=== PATIENT | male | born 1970 | race Caucasian/White ===

== ENCOUNTER → 2019-02-23 | Outpatient (CLI) | payer OTHER | LOC: MRI 13:57 | DX: M41.84 Other forms of scoliosis, thoracic region (principal); M25.78 Osteophyte, vertebrae; M50.223 Other cervical disc displacement at C6-C7 level; M48.02 Spinal stenosis, cervical region; M51.24 Other intervertebral disc displacement, thoracic region; M51.34 Other intervertebral disc degeneration, thoracic region; M48.04 Spinal stenosis, thoracic region ==

== ENCOUNTER 2019-03-02 04:42 | Emergency (ER) | payer OTHER ==
[~2019-03-02] VITALS: Ht 172.7 cm; Wt 122.5 kg
[2019-03-02] MEDS ORDERED: MELOXICAM7.5 MG PO (04:52)
[2019-03-02] MEDS ORDERED: DULOXETINE HCL30 MG PO (04:52)
[2019-03-02 06:09] VITALS: BP 127/81
== END 2019-03-02 06:00 | disposition home or self-care (01) ==
LOC: ER 04:42
DX: J10.1 Influenza due to other identified influenza virus with other respiratory manifestations (principal); Z98.52 Vasectomy status; Z88.0 Allergy status to penicillin

== ENCOUNTER → 2019-04-03 | Outpatient (CLI) | payer OTHER ==
[~2019-04-03] VITALS: Ht 172.7 cm; Wt 125.2 kg
[~2019-04-03] MED LIST: DULOXETINE HCL30 MG PO; MELOXICAM7.5 MG PO
--- NOTE | ~2019-04-03 | HPC ---
[facility] [address] [place] [address] PAIN MANAGEMENT CONSULTATION Name: RADHA BOYD Room #: REG [facility].#: [id number] Admission: 04/03/19 Attend Phys: Davie Adler MD Discharge: Date of : 70 Report #: [id number] THIS REPORT FOR: cc: Bird Brown MD, Neal A. MD Morgan,Davie Hodges MD ~ THIS REPORT FOR: //name// CC: Bird Adler DATE OF SERVICE: 04/03/2019 CHIEF COMPLAINT: Left knee pain, chronic. I am seeing the patient today at the request of Dr. Bird Brown for chronic pain. He is a morbidly obese 49-year-old gentleman who has been out of work since May. 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 With increasing knee pain, he has been unable to perform his job. He describes the pain as severe and intense affecting his gait. He has a second pain along his left side that radiates along his rib cage. This occurred with some lifting activities. He reports that he saw a chiropractor who popped it back into place and that his chest wall pain has been improved. It is a far second to the pain that he experiences in his knee with weightbearing. He has an MRI that shows degenerative disk in the mid thoracic spine; however, there is no impingement for my review of the cord within the canal. No flattening in the neural foramina. It did not seem to be markedly compromised either. I doubt that his chest wall pain is radicular. We spent the majority of time discussing his knee which limits his activity greatly. Dr. lOivas and Dr. Marshall had suggested knee replacement. He complains that the insurance company said that he was not a candidate would not pay for the knee replacement. He also saw Dr. Samuel Emery who felt that he was perhaps not ready for replacement based upon his assessment. He has had multiple treatments for his knee including medication, nonsteroidal anti-inflammatory drugs, topical creams, physical therapy, injections of cortisone and synthetics, none of them providing lasting relief or improvement in function. CURRENT MEDICINES: Cymbalta 30 mg daily started in March of 2017 for depression, which is improved and meloxicam 7.5 [place] [address] PAIN MANAGEMENT CONSULTATION Name: RADHA BOYD Room #: REG [facility]#: [id number] Admission: 04/03/19 Attend Phys: Davie Adler MD Discharge: Date of : 70 Report #: [id number] ALLERGIES: PENICILLIN. PAST MEDICAL HISTORY: Positive for hypertension. He has had a surgery for deviated septum, appendectomy and a knee debridement. He did not report it, but on exam there was noted a scar in his neck and he has had a posterior laminectomy in the area of the C6-C7. Dr. Gomez performed the surgery. SOCIAL HISTORY: Has been off of work since May when he told me I assumed 05/2018, but his report as I dictate this 2017, so it may have been off for over 20 months. Denies use of tobacco, denies use of alcohol. He lives with his . He has 2 children grown and 2 grandchildren. Impact pain score is quite high at 49/70 suggesting interference of most of his activities of daily living and interference with sleep, mood and enjoyment of life at a high level. REVIEW OF SYSTEMS: Weight gain noted. He now weighs 276 with a BMI of 42. He has blurred vision. Denies chest pain, shortness of breath. Gastrointestinal or genitourinary problems. He self-reports memory loss, confusion, depression, and insomnia, which he relates all to pain. PHYSICAL EXAMINATION: GENERAL: He is a pleasant gentleman who seems to be mildly depressed. VITAL SIGNS: His blood pressure is 140/86, heart rate 78, respirations 16, O2 sat 99 on room air. He is 5 feet 8 inches, 276 pounds with a BMI of 42. HEENT: Reveals pupils to be equal, round, reactive to light. EOMs are intact. Mucous membranes are moist. NECK: Supple. LUNGS: Examination of the chest reveals some tenderness around the left chest wall. It does not follow a dermatomal pattern. MUSCULOSKELETAL: Examination of the lumbar spine reveals slight tenderness. Limited range of motion. EXTREMITIES: Examination of the extremities reveals symmetrical upper and lower extremities. He complained of atrophy, but there is none evident. He has good muscle mass noted in quadriceps and hamstrings. Straight leg raising is negative bilaterally. Sensation is normal bilaterally in the upper and lower extremities with no loss of sensation noted. Strength is also judged to be normal and adequate throughout. His gait is markedly antalgic. He has a rather dramatic limp. Examination of the left knee reveals good range of motion, no instability with lateral medial testing. Drawer test is negative. No crepitus present with movement. He has good range of motion. IMPRESSION: 1. Chronic pain syndrome. This has affected his activity and has kept him from work. Pain generators are primarily left knee and he does have some recent [facility] [address] [place] [address] PAIN MANAGEMENT CONSULTATION Name: RADHA BOYD Room #: REG [facility] Bhavya.#: [id number] Admission: 04/03/19 Attend Phys: Davie Adler MD Discharge: Date of : 70 Report #: [id number] onset chest wall pain which seems to be resolving. 2. Morbid obesity. This is certainly affecting his gait. 3. Hypertension. RECOMMENDATIONS: I have recommended continued physical therapy. Walking on a daily basis is critical. He will hurt himself by walking and if increased breakdown of cartilage occurs and the knee looks worse, he may then be a candidate for knee replacement at some time in the future. He has been on stronger pain medication, but wants to avoid them at this time. I would agree with that unless he is taking them for functional goals such as remaining at work. No additional recommendations. By: 1123 Davie Adler MD /nt
[2019-04-03 09:30] VITALS: BP 140/86
--- NOTE | 2019-04-03 09:33 | NUR ---
Pain Clinic Assessment: 1. History of Osteoarthritis: Not Applicable History of Rheumatoid Arthritis: Not Applicable 2. Height: 5 ft. 8 in. 172.7 cm. Weight: 276.0 lb. oz. 125.193 kg. Patient's BMI: 42.0 3. Vital Signs: BP: 140/86 Pulse: 78 Resp: 16 Temp: 02 Sat: 99 ECG Mon: 4. Pain Intensity: 5 5. Fall Risk: Dizziness: N Needs help standing or walking: Y Fallen in the last 3 months: N Fall risk comments: 6. Patient on Blood Thinner: None 7. History of Hypertension: Y 8. Opioid Therapy greater than 6 weeks: N Opiate Contract Signed: 9. Risk Assessment Tool Provided: 10. Functional Assessment Tool: 49 11. Recreational Drug Use: Never Drug Type: Tobacco Use: Never Smoker Tobacco Type: Amount or Packs/day: How Many Years: Alcohol Use: Past use Frequency: Weekly Quant: WON'T DRINK/N&V
== END ==
LOC: PAIN 06:52
DX: G89.4 Chronic pain syndrome (principal); M25.562 Pain in left knee; E66.01 Morbid (severe) obesity due to excess calories; I10 Essential (primary) hypertension; Z88.0 Allergy status to penicillin

== ENCOUNTER 2019-07-17 06:11 | Day surgery (SDC) | payer OTHER ==
[2019-07-10 09:31] LABS: HEMATOCRIT 44.1 % (42.0-52.0); HEMOGLOBIN 14.6 gm/dL (14.0-18.0); MCHC 33.1 g/dL (28.0-37.0); MCV 87.5 fL (80.0-100.0); RBC 5.04 mil/uL (4.50-6.00); WBC 5.7 thou/uL (4.0-11.0)
[2019-07-10 09:41] LABS: ALBUMIN 3.8 g/dL (3.4-5.0); CALCIUM 8.9 mg/dL (8.5-10.1)
[2019-07-10 09:43] LABS: URINE BILIRUBIN NEGATIVE (Negative); URINE BLOOD NEGATIVE (Negative); URINE CLARITY CLEAR; URINE COLOR YELLOW; URINE GLUCOSE-RANDOM* NEGATIVE (Negative); URINE KETONES NEGATIVE (Negative); URINE LEUKOCYTES-REFLEX NEGATIVE (Negative); URINE NITRITE-REFLEX NEGATIVE (Negative); URINE PROTEIN (DIPSTICK) NEGATIVE (Negative); URINE UROBILINOGEN 0.2 E.U./dl (0.2-1.0)
[~2019-07-17] VITALS: Ht 172.7 cm; Wt 123.8 kg
--- NOTE | ~2019-07-17 | O ---
[facility] [place] [address] OPERATIVE REPORT Name: RADHA BOYD Room #: 150-1 [facility]..#: [id number] Admission: 07/17/19 Attend Phys: Renny Lemus MD Discharge: Date of : 70 Report #: [id number] THIS REPORT FOR: cc: Bird Brown MD, Neal A. MD Abraham,Renny Clemente MD ~ CC: Bird Lemus DATE OF SERVICE: 07/17/2019 PREOPERATIVE DIAGNOSIS: Left knee osteoarthritis. POSTOPERATIVE DIAGNOSIS: Left knee osteoarthritis. PROCEDURE: Left total knee arthroplasty using Navio robotic assistance. SURGEON: Renny Lemus M.D. HOSPITAL NURSING ASSISTANT: Akiko Killian PA-C. INDICATIONS FOR HOSPITAL NURSING ASSISTANT: Throughout the case, extensive retraction and manipulation of the knee was required. This was afforded to me by my drafter assistant. ANESTHESIA: LMA with an adductor canal block. IMPLANTS: Ahn and Nephew size 8 Journey II BCS Oxinium femur, size 6 tibia, size 11 constrained polyethylene and size 35 patella. TOURNIQUET TIME: 64 minutes. ESTIMATED BLOOD LOSS: 25 mL. COMPLICATIONS: None. SPECIMENS: None. CONDITION UPON LEAVING THE OPERATING ROOM: Stable. INDICATIONS FOR PROCEDURE: The patient is a 49-year-old gentleman who has left knee osteoarthritis. He had failed conservative measures for this including PT arthroscopy, injections and NSAIDs. After discussion with him, he elected for left total knee arthroplasty. DESCRIPTION OF PROCEDURE: Risks, benefits, alternatives, complications were discussed in detail with the patient including but not limited to risk of [facility] [address] [place] [address] OPERATIVE REPORT Name: RADHA BOYD Room #: 150-1 [facility]#: [id number] Admission: 07/17/19 Attend Phys: Renny Lemus MD Discharge: Date of : 70 Report #: [id number] anesthesia, risk of damage to nerves, arteries, blood vessels, risk for infection, bleeding, risk for continued knee pain, need for reoperation. Informed consent was obtained from the patient. Left knee was appropriately marked in the preoperative holding area. IV Ancef was given for preoperative antibiotics. He was brought to the operating room and placed in supine position on operating room table. LMA anesthesia was induced without complication. Tourniquet was placed on the left thigh. Left lower extremity was prepped and draped in normal sterile fashion. Timeout was performed properly identifying the patient and procedure as well as the instrumentation and implants. All in the operating room were in agreement. Left lower extremity was exsanguinated, tourniquet was inflated. Tourniquet time was 64 minutes. Standard midline approach to knee was made with 10 blade through the skin. Dissection was taken down sharply to the fascia and deep flaps and developed medially and laterally. Fresh 10 blade was used to make a medial parapatellar arthrotomy and the knee was inspected. There was moderate to severe osteoarthritis both on the medial and lateral femoral condyles with complete loss of articular cartilage. ACL and PCL were removed sharply. Reference pins were placed in the femur and the tibia. The knee was then digitally mapped using the Zeuss robotic system. Intraoperative plan was made and we sized the size 8 femur with a size 6 tibia and a size 10 spacer. After acceptance of the intraoperative plan, the distal femoral cut was made with a Navio bur. The distal femoral cutting block was pinned in place and chamfer cuts were made. Attention was then turned to the tibia. Remainder of the menisci removed with Bovie cautery. Tibial resection guide was pinned in place and tibial resection was made. Flexion and extension gaps were then checked and found to have good balance in flexion and extension both medially and laterally. Tibia was sized, found to be a size 6. A size 6 tibial trial was placed, pinned and punched. A size 8 femoral trial was placed and box cut was made. This was then trialed with a size 11 polyethylene. Knee was taken through range of motion, found to have good balance medially and laterally throughout range of motion except for deep flexion, which there was some laxity laterally. It was felt we could make up for this with a constrained implant, 9 mm was resected from the posterior surface of the patella and a size 35 patellar trial button was placed. Knee was taken through range of motion, found to be stable, found to have good patellar tracking. Trial components were removed. Bony ends were thoroughly irrigated with normal saline. A final size 6 tibia, size 8 Journey II BCS Oxinium femur and a size 35 patella were cemented in place using standard cementation techniques. While the cement cured, a periarticular injection consisting of morphine, ropivacaine, epinephrine, Toradol was placed around the knee joint capsule. After the cement cured, tourniquet was deflated. Hemostasis was obtained with Bovie cautery. A final size 11 constrained polyethylene was placed. A gram of vancomycin was placed deep in the joint. Fascia was closed with 0 Vicryl, skin was closed with 2-0 Vicryl, skin staple and a SULY dressing was applied. The patient tolerated this [facility] [address] [place] [address] OPERATIVE REPORT Name: RADHA BOYD Room #: 150-1 [facility] M.R.#: [id number] Admission: 07/17/19 Attend Phys: Renny Lemus MD Discharge: Date of : 70 Report #: [id number] procedure well and went to recovery room under care of anesthesia postoperatively. By: [id number] Renny Lemus MD /nt
[~2019-07-17 06:11] MED LIST changes: +CO-ENZYME Q-1010 MG PO; +COQ-10100 MG PO; +FISH OIL 1,001000 M2 PO; +FOLIC ACID0.8 M1 PO; +GLUCOSAMINE &1 EAC1 PO; +MAGNESIUM250 M1 PO; +TYLENOL325 M1 PO; +VITAMIN B-121000 MC2 SUBLING; +VITAMIN C500 M1 PO; +VITAMIN D350 MC1 PO; +[UNRECOGNIZED DRUG - OTHER] PO
[2019-07-17 07:31] VITALS: BP 131/77
[2019-07-17 11:20] VITALS: BP 133/89
[2019-07-17 15:10] VITALS: BP 160/88
--- NOTE | 2019-07-17 15:16 | NUR ---
49 YO MALE ADMITTED FROM PACU TO 437. A&OX4. SULY DRSG IS SECURED WITH POLAR PACK AND VALENTÍN BANDAGE. PT IS AMBULATING WITH WITH STANDBY ASSIST AND WALKER. HAS VOIDED. STATES PAIN AT 2/10, TOLERATING PO HYDROCODONE WELL. CALL LIGHT W/I REACH.
--- NOTE | 2019-07-17 16:12 | NUR ---
PT ADMITTED RELATED TO LT TOTAL KNEE REPLACEMENT. CM REVIEWED CHART AND SPOKE WITH CARE TEAM. CM CALLED AND SPOKE WITH PT AT BEDSIDE THIS DAY. PT APPEARED TO BE A&O X4. CM ROLE INTRODUCED. PT INDICATED HE LIVES IN A HOUSE WITH HIS SPOUSE WITH 12 STEPS TO ENTER AND 8 STEPS TO BEDROOM. PT INIDCATED HE HAD BEEN ISING A CANE TO ASSIST WIH MOBILITY BUT HAD A FWW FOR USE UPON DC. PT INDICATED HE HAS AN OUTPATIENT PT APPOINTMENT TOMORROW AT 12:00 AT [facility] ON . PT AND PT MONTY INDICATED THAT PT HAD FOOT DROP AND THAT PT COULDN'T FEEL LEG OF SESSION THIS AFTERNOON. PT AND CARE TEAM INDICATING PT WOULD BENEFIT FROM DC WEDNESDAY HE HAS MANY STEPS TO NAVIGATE TO ENTER HOME. 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 IT IS ANTIPCATED THAT PT WILL DC HOME WEDNESDAY WITH HIS OWN DME AND OP PT. CM TO FOLLOW INDICATED WITH DC PLANNING. CM NOTIIED UR NURSE WELL.
[2019-07-17 20:05] VITALS: BP 116/77
[2019-07-18 00:32] VITALS: BP 115/72
[2019-07-18 04:05] VITALS: BP 108/80
--- NOTE | 2019-07-18 05:14 | NUR ---
ASSESSED AT START OF SHIFT 1900. PT A&OX4 UP WITH SBA TO THE BATHROOM. IV INTACT AND FLUIDS INFUISING. HYDROCODONE GIVENX1 FOR PAIN OF 2/10. SULY DRESSING AND POLAR PACK IN PLACE. DENIES N/V. FALL PREC IN PLACE AND CALL LIGHT IN REACH WILL CONT WITH POC TILL EOS.
[2019-07-18 05:25] LABS: HEMATOCRIT 39.8 % (42.0-52.0); HEMOGLOBIN 12.9 gm/dL (14.0-18.0); MCH 28.9 pg (26.0-34.0); MCHC 32.5 g/dL (28.0-37.0); MCV 88.8 fL (80.0-100.0); RBC 4.48 mil/uL (4.50-6.00); RDW 15.4 % (10.5-14.5)
[2019-07-18 07:30] VITALS: BP 120/70
[2019-07-18 11:16] VITALS: BP 120/70
--- NOTE | 2019-07-18 14:07 | NUR ---
ASSUMED PATIENT CARE AT 0700. AX O X4. PATIENT UP WITH ASSIST, TOLERATES WELL WHILE AMBULATING TO THE BATHROOM. NOTED PAIN OF 3-4 ON MOVEMENT, HYDROCODONE PRN GIVEN, RESPONDS TO MEDICINE. CALL LIGHT AND PERSONAL EQUPMENTS WITHIN REACH, FALL PRECAUTIONS IN PLACE. ON ROOM AIR, TEDS ON PLACE, SCDS IN PLACE, WOUND LOOKS CLEAN AND GOOD. PT DRESSING GOT WET DURING SHOWER, PROVIDER NOTIFIED AND DRESSING CHANGED PER ORDER. PHYSICAL THERAPY CONSULTED AND PATIENT IS DISCHARGED TO HOME.
== END 2019-07-18 13:56 | disposition home or self-care (01) ==
LOC: OR 06:11 → TBA 06:11 → OR 08:15 → 4S 11:10 → OR 11:55
PROVIDERS: Orthopaedic Surgery
DX: M17.12 Unilateral primary osteoarthritis, left knee (principal); M25.562 Pain in left knee; F32.9 Major depressive disorder, single episode, unspecified; Z98.890 Other specified postprocedural states; Z79.899 Other long term (current) drug therapy; Z90.49 Acquired absence of other specified parts of digestive tract; Z88.0 Allergy status to penicillin; Z88.8 Allergy status to other drugs, medicaments and biological substances
CPT/HCPCS: 50010; 50101; 50415; 50954; 51130; 51225; 51320; 51412; 52001; 52282; 53000; 53078; 55372; 56528; 57095; 57103; 57110; 57127; 57180; 62110; 62900; 64039; 70005

== ENCOUNTER 2020-03-02 15:02 | Emergency (ER) | payer BC, OTHER ==
[~2020-03-02] VITALS: Ht 172.7 cm; Wt 127.0 kg
[2020-03-02 16:12] LABS: ABSOLUTE NEUTROPHILS 7.7 thou/uL (1.4-8.2); BASOPHILS 0.2 % (0.0-2.0); EOSINOPHILS 0.5 % (0.0-3.0); HEMOGLOBIN 15.2 gm/dL (14.0-18.0); LYMPHOCYTES 7.1 % (24.0-44.0); MCH 27.8 pg (26.0-34.0); MCHC 31.6 g/dL (28.0-37.0); MCV 87.8 fL (80.0-100.0); MONOCYTES 4.4 % (1.0-8.0); PLATELET COUNT 310 thou/uL (150-400); POLYS 87.8 % (36.0-66.0); RBC 5.47 mil/uL (4.50-6.00); RDW 15.9 % (10.5-14.5); WBC 8.7 thou/uL (4.0-11.0)
[2020-03-02 16:31] LABS: CALCIUM 9.3 mg/dL (8.5-10.1); CREATININE 1.3 mg/dL (0.7-1.3); POTASSIUM 3.9 mmol/L (3.5-5.1)
[2020-03-02 16:34] LABS: ALBUMIN 3.6 g/dL (3.4-5.0); TOTAL BILIRUBIN 0.5 mg/dL (0.2-1.0); TOTAL PROTEIN 7.5 g/dL (6.4-8.2)
[2020-03-02] MEDS ORDERED: COMPAZINE10 MG PO (17:42)
[2020-03-02 18:03] LABS: URINE BILIRUBIN NEGATIVE (Negative); URINE BLOOD NEGATIVE (Negative); URINE CLARITY CLEAR; URINE COLOR YELLOW; URINE GLUCOSE-RANDOM* NEGATIVE (Negative); URINE KETONES NEGATIVE (Negative); URINE LEUKOCYTES-REFLEX NEGATIVE (Negative); URINE NITRITE-REFLEX NEGATIVE (Negative); URINE PROTEIN (DIPSTICK) NEGATIVE (Negative); URINE SPECIFIC GRAVITY 1.015 (1.005-1.035)
[2020-03-02 18:19] VITALS: BP 148/58
== END 2020-03-02 18:20 | disposition home or self-care (01) ==
LOC: ER 15:02
PROVIDERS: Emergency Medicine
DX: R50.9 Fever, unspecified (principal); Z20.828 Contact with and (suspected) exposure to other viral communicable diseases; R11.2 Nausea with vomiting, unspecified; R10.9 Unspecified abdominal pain; R19.7 Diarrhea, unspecified; R51.9 Headache, unspecified; Z90.49 Acquired absence of other specified parts of digestive tract; Z79.899 Other long term (current) drug therapy; Z88.0 Allergy status to penicillin; Z88.6 Allergy status to analgesic agent